=== PATIENT | female | born 1995 | race Caucasian/White ===

== ENCOUNTER 2018-05-19 08:09 | Inpatient (IN) | payer BC ==
[2018-05-19] MEDS ORDERED: LORAZEPAM 2 MG INJ IV (09:30)
[2018-05-19] MEDS ORDERED: DOCUSATE SODIUM 100 MG CAP PO (09:30)
[2018-05-19] MEDS ORDERED: ALBUTEROL/IPRATROPIUM (NEB) 3 ML AMP HHN (09:30)
[2018-05-19] MEDS ORDERED: hydrALAzine 20 MG INJ IV (09:30)
[2018-05-19] MEDS ORDERED: NA PHOSPHATE/BIPHOS 133 ML ENEMA PR (09:30)
[2018-05-19] MEDS ORDERED: NACL 0.9% 3 ML SYG IV (09:30)
[2018-05-19] MEDS ORDERED: ONDANSETRON 4 MG INJ IV (09:30)
[2018-05-19] MEDS ORDERED: MAGNESIUM HYDROXIDE 30ML CUP PO (09:30)
[2018-05-19] MEDS ORDERED: ACETAMINOPHEN 325 MG TAB PO (09:30)
[2018-05-19] MEDS ORDERED: NITROGLYCERIN (SL) 0.4 MG TAB SL (09:30)
[2018-05-19] MEDS: morphine 2 MG INJ IV ×4 (09:54→22:10)
[2018-05-19 10:12] LABS: INR 0.89; PROTIME 12.1 Sec (11.9-14.9); PT RATIO 0.9
[2018-05-19 10:13] LABS: PARTIAL THROMBOPLASTIN TIME 25.8 Sec (25.0-35.0)
[2018-05-19] MEDS: HEPARIN 5,000 UNIT/0.5 ML VIAL SC ×2 (11:06→20:16)
[2018-05-19] MEDS: PANTOPRAZOLE (EC) 40 MG TAB PO (11:07)
[2018-05-19 11:09] LABS: FREE T4 (FREE THYROXINE) 1.08 ng/dl (0.79-2.35)
[2018-05-19] MEDS: SOD CHLORIDE 0.45% 1,000 ML IV ×2 (11:10→23:28)
[2018-05-19] MEDS: PIPER-TAZO 3.375 GM IV (PMX) 100 ML IVPB ×3 (11:11→23:28)
[2018-05-19] MEDS: [UNRECOGNIZED DRUG - REMARK] XX ×2 (19:30→23:38)
[2018-05-19] MEDS: LAMOTRIGINE 25 MG TAB PO (20:17)
[2018-05-19] MEDS: clonAZEPAM 0.5 MG TAB PO (20:17)
[2018-05-20] MEDS: morphine 2 MG INJ IV ×4 (04:50→20:06)
[2018-05-20] MEDS: PANTOPRAZOLE (EC) 40 MG TAB PO (05:31)
[2018-05-20] MEDS: PIPER-TAZO 3.375 GM IV (PMX) 100 ML IVPB ×4 (05:31→23:44)
[2018-05-20 06:14] LABS: ADD MAN DIFF? NO
[2018-05-20 06:35] LABS: HEMOGLOBIN A1C 5.1 % (0-5.9)
[2018-05-20 06:37] LABS: BASOPHIL # 0.1 10^3/ul (0.0-0.1); BASOPHILS % 0.5 % (0.0-2.0); EOSINOPHILS # 0.2 10^3/ul (0.0-0.5); EOSINOPHILS % 2.4 % (0.0-7.0); HEMATOCRIT 40.6 % (37.0-47.0); HEMOGLOBIN 13.1 g/dl (12.0-16.0); LYMPHOCYTES # 3.3 10^3/ul (0.8-2.9); MEAN CORPUSCULAR HEMOGLOBIN 31.2 pg (29.0-33.0); MEAN CORPUSCULAR HGB CONC 32.3 g/dl (32.0-37.0); MEAN CORPUSCULAR VOLUME 96.7 fl (82.0-101.0); MONOCYTE # 0.8 10^3/ul (0.3-0.9); MONOCYTES % 8.8 % (0.0-11.0); NEUTROPHIL # 5.1 10^3/ul (1.6-7.5); NEUTROPHILS % 52.9 % (39.0-77.0); PLATELET COUNT 277 10^3/UL (140-415); RED CELL DISTRIBUTION WIDTH 13.1 % (11.5-14.5)
[2018-05-20 06:37] LABS: WHITE BLOOD COUNT 9.6 10^3/ul (4.8-10.8)
[2018-05-20 06:44] LABS: ANION GAP 14 (8-16); BLOOD UREA NITROGEN 20 mg/dl (7-20); CALCIUM 8.8 mg/dl (8.4-10.2); CARBON DIOXIDE 29 mmol/L (21-31); CHLORIDE 105 mmol/L (97-110); CHOL/HDL RATIO 2.2 RATIO; CHOLESTEROL 155 mg/dl (100-200); CREATININE 0.78 mg/dl (0.44-1.00); GLUCOSE 73 mg/dl (70-220); HDL CHOLESTEROL 70 mg/dl (33-83); LDL CHOLESTEROL,CALCULATED 63 mg/dl; MAGNESIUM 1.9 mg/dl (1.7-2.5); PHOSPHORUS 6.2 mg/dl (2.5-4.9); POTASSIUM 4.2 mmol/L (3.5-5.1); SODIUM 144 mmol/L (135-144); TRIGLYCERIDES 108 mg/dl (0-149)
[2018-05-20] MEDS: HEPARIN 5,000 UNIT/0.5 ML VIAL SC ×2 (08:41→20:07)
[2018-05-20] MEDS: CITALOPRAM 20 MG TAB PO (08:42)
[2018-05-20] MEDS: LAMOTRIGINE 25 MG TAB PO ×2 (08:42→20:07)
[2018-05-20] MEDS ORDERED: AMPHET ASP AMPHET D AMPHET 10 MG PO (09:00)
[2018-05-20] MEDS: [UNRECOGNIZED DRUG - REMARK] XX ×2 (11:30→19:30)
[2018-05-20] MEDS: SOD CHLORIDE 0.45% 1,000 ML IV ×2 (12:40→15:40)
[2018-05-20] MEDS: HYDROCODONE/APAP (5/325) TAB PO ×2 (12:52→21:20)
[2018-05-20] MEDS: clonAZEPAM 0.5 MG TAB PO (16:28)
[2018-05-21] MEDS: [UNRECOGNIZED DRUG - REMARK] XX ×2 (03:07→11:27)
[2018-05-21] MEDS: morphine 2 MG INJ IV ×3 (05:07→13:47)
[2018-05-21] MEDS: PANTOPRAZOLE (EC) 40 MG TAB PO (05:07)
[2018-05-21] MEDS: PIPER-TAZO 3.375 GM IV (PMX) 100 ML IVPB ×2 (05:07→11:43)
[2018-05-21 05:45] LABS: ADD MAN DIFF? NO
[2018-05-21 05:58] LABS: BASOPHILS % 0.5 % (0.0-2.0); EOSINOPHILS # 0.2 10^3/ul (0.0-0.5); EOSINOPHILS % 1.8 % (0.0-7.0); HEMATOCRIT 34.5 % (37.0-47.0); HEMOGLOBIN 11.5 g/dl (12.0-16.0); LYMPHOCYTES # 3.4 10^3/ul (0.8-2.9); LYMPHOCYTES % 39.6 % (15.0-51.0); MEAN CORPUSCULAR HEMOGLOBIN 31.3 pg (29.0-33.0); MEAN CORPUSCULAR HGB CONC 33.3 g/dl (32.0-37.0); MEAN PLATELET VOLUME 9.8 fl (7.4-10.4); MONOCYTE # 0.8 10^3/ul (0.3-0.9); MONOCYTES % 8.8 % (0.0-11.0); NEUTROPHIL # 4.2 10^3/ul (1.6-7.5); NEUTROPHILS % 49.1 % (39.0-77.0); PLATELET COUNT 208 10^3/UL (140-415); RED BLOOD COUNT 3.67 10^6/ul (4.20-5.40); RED CELL DISTRIBUTION WIDTH 13.1 % (11.5-14.5)
[2018-05-21 05:58] LABS: WHITE BLOOD COUNT 8.5 10^3/ul (4.8-10.8)
[2018-05-21 06:15] LABS: ANION GAP 12 (8-16); BLOOD UREA NITROGEN 17 mg/dl (7-20); CALCIUM 8.5 mg/dl (8.4-10.2); CARBON DIOXIDE 29 mmol/L (21-31); CHLORIDE 105 mmol/L (97-110); CREATININE 0.65 mg/dl (0.44-1.00); GLUCOSE 82 mg/dl (70-220); SODIUM 142 mmol/L (135-144)
[2018-05-21] MEDS: SOD CHLORIDE 0.45% 1,000 ML IV (08:17)
[2018-05-21] MEDS: CITALOPRAM 20 MG TAB PO (08:19)
[2018-05-21] MEDS: LAMOTRIGINE 25 MG TAB PO (08:19)
[2018-05-21] MEDS: HEPARIN 5,000 UNIT/0.5 ML VIAL SC (08:20)
[2018-05-21] MEDS: clonAZEPAM 0.5 MG TAB PO (14:31)
== END 2018-05-21 17:30 | disposition home or self-care (01) | DRG 603 ==
LOC: PP2 08:09
PROVIDERS: Internal Medicine
DX: L03.116 Cellulitis of left lower limb (principal); F32.9 Major depressive disorder, single episode, unspecified; F41.9 Anxiety disorder, unspecified
CPT/HCPCS: 80048; 80061; 83036; 83735; 84100; 84439; 84443; 85025; 85610; 85730; 97116; 97161

== ENCOUNTER 2018-06-13 12:04 | Emergency (ER) | payer BC ==
[2018-06-13 12:48] LABS: ADD MAN DIFF? NO
[2018-06-13 12:49] LABS: BASOPHILS % 0.3 % (0.0-2.0); EOSINOPHILS # 0.2 10^3/ul (0.0-0.5); EOSINOPHILS % 2.4 % (0.0-7.0); HEMATOCRIT 37.3 % (37.0-47.0); HEMOGLOBIN 12.9 g/dl (12.0-16.0); LYMPHOCYTES # 2.4 10^3/ul (0.8-2.9); LYMPHOCYTES % 34.5 % (15.0-51.0); MEAN CORPUSCULAR HEMOGLOBIN 31.4 pg (29.0-33.0); MEAN CORPUSCULAR HGB CONC 34.6 g/dl (32.0-37.0); MEAN CORPUSCULAR VOLUME 90.8 fl (82.0-101.0); MEAN PLATELET VOLUME 9.5 fl (7.4-10.4); MONOCYTE # 0.8 10^3/ul (0.3-0.9); MONOCYTES % 11.5 % (0.0-11.0); NEUTROPHIL # 3.6 10^3/ul (1.6-7.5); PLATELET COUNT 224 10^3/UL (140-415); RED BLOOD COUNT 4.11 10^6/ul (4.20-5.40); RED CELL DISTRIBUTION WIDTH 12.3 % (11.5-14.5)
[2018-06-13 12:49] LABS: WHITE BLOOD COUNT 7.1 10^3/ul (4.8-10.8)
[2018-06-13 13:16] LABS: ACETAMINOPHEN < 10.0 ug/ml (10.0-30.0); ALBUMIN/GLOBULIN RATIO 1.29; ALKALINE PHOSPHATASE 63 IU/L (42-121); ANION GAP 13 (8-16); ASPARTATE AMINO TRANSFERASE 25 IU/L (15-46); BILIRUBIN,INDIRECT 0.2 mg/dl (0-1.1); BILIRUBIN,TOTAL 0.2 mg/dl (0.2-1.3); BLOOD UREA NITROGEN 9 mg/dl (7-20); CARBON DIOXIDE 28 mmol/L (21-31); CHLORIDE 104 mmol/L (97-110); CREATININE 0.55 mg/dl (0.44-1.00); ETHANOL < 10.0 mg/dl; GLUCOSE 84 mg/dl (70-220); POTASSIUM 3.7 mmol/L (3.5-5.1); SALICYLATE < 1.0 mg/dl (5.0-30.0); SODIUM 141 mmol/L (135-144); TOTAL PROTEIN 7.1 g/dl (6.1-8.1)
[2018-06-13 13:22] LABS: ALANINE AMINOTRANSFERASE 28 IU/L (13-69)
[2018-06-13 15:39] LABS: ADD UMIC YES; UR AMORPHOUS CRYSTAL MANY /HPF (NONE SEEN); UR ASCORBIC ACID 40 mg/dL (NEGATIVE); UR BACTERIA FEW /HPF (NONE SEEN); UR BILIRUBIN (Dip) NEGATIVE (NEGATIVE); UR BLOOD (Dip) 2+ mg/dL (NEGATIVE); UR CLARITY TURBID (CLEAR); UR COLOR YELLOW (YELLOW); UR GLUCOSE (Dip) NEGATIVE (NEGATIVE); UR KETONES (Dip) TRACE mg/dL (NEGATIVE); UR LEUKOCYTE ESTERASE (Dip) NEGATIVE Leu/ul (NEGATIVE); UR MUCUS MANY /HPF (NONE SEEN); UR NITRITE (Dip) NEGATIVE (NEGATIVE); UR RBC 0 /HPF (0-5); UR SPECIFIC GRAVITY (Dip) 1.031 (1.003-1.030); UR SQUAMOUS EPITHELIAL CELL FEW /HPF (FEW); UR TOTAL PROTEIN (Dip) 1+ mg/dl (NEGATIVE); UR UROBILINOGEN (Dip) 1+ mg/dL (NEGATIVE); UR WBC 52 /HPF (0-5)
[2018-06-13 15:45] LABS: BARBITURATES Negative (NEGATIVE); BENZODIAZEPINES Positive (NEGATIVE); CANNABINOIDS Negative (NEGATIVE); COCAINE Positive (NEGATIVE)
[2018-06-13 15:55] LABS: OPIATES Positive (NEGATIVE)
[2018-06-13 15:56] LABS: AMPHETAMINE/METHAMPHETAMINE POSITIVE (NEGATIVE)
[2018-06-13] MEDS ORDERED: LIDOCAINE 1% (MDV) 20 ML INJ (16:38)
[2018-06-13] MEDS: CEFTRIAXONE 1 GM INJ IM (16:40)
== END 2018-06-14 08:00 ==
LOC: E/R 12:04
DX: N39.0 Urinary tract infection, site not specified (principal); F15.10 Other stimulant abuse, uncomplicated; F14.10 Cocaine abuse, uncomplicated; F11.10 Opioid abuse, uncomplicated; F13.10 Sedative, hypnotic or anxiolytic abuse, uncomplicated; F99 Mental disorder, not otherwise specified; F17.210 Nicotine dependence, cigarettes, uncomplicated
CPT/HCPCS: 36415; 80053; 80307; 81001; 81025; 85025; 96372; 99285-25